=== PATIENT | male | born 1950 | race Two or more races ===

== ENCOUNTER 2019-10-16 08:14 | Emergency (ER) | payer OTHER ==
[~2019-10-16] VITALS: Ht 182.9 cm; Wt 104.3 kg
[2019-10-16] MEDS ORDERED: ZOLOFT20 MG/1 ML (08:26)
[2019-10-16] MEDS ORDERED: TENORMIN50 M1 (08:26)
[2019-10-16] MEDS ORDERED: CRESTOR5 MG (08:26)
[2019-10-16] MEDS ORDERED: ASPIR 8181 MG (08:27)
[2019-10-16] MEDS ORDERED: TAMS0.4C (08:27)
== END 2019-10-16 10:30 | disposition home or self-care (01) ==
LOC: ER 08:14
DX: L02.213 Cutaneous abscess of chest wall (principal); L72.8 Other follicular cysts of the skin and subcutaneous tissue; B96.4 Proteus (mirabilis) (morganii) as the cause of diseases classified elsewhere; B96.6 Bacteroides fragilis [B. fragilis] as the cause of diseases classified elsewhere

== ENCOUNTER 2021-09-26 04:46 | Inpatient (IN) | payer OTHER ==
[~2021-09-26] VITALS: Ht 182.9 cm; Wt 113.4 kg
[~2021-09-26 04:46] MED LIST: ASPIR 8181 MG; CRESTOR5 MG; TAMS0.4C; TENORMIN50 M1; ZOLOFT20 MG/1 ML
[2021-09-26] MEDS ORDERED: ELIQUIS5 MG (05:08)
== END 2021-10-03 15:10 | disposition home or self-care (01) | DRG 308 ==
LOC: ER 04:46 → MEDI 12:26
PROVIDERS: ADMIT Internal Medicine; ATTEND Internal Medicine
PROC: B24BZZZ Ultrasonography of Heart with Aorta (ICD-10-PCS; principal; 2021-09-26)
PROC: BW24ZZZ Computerized Tomography (CT Scan) of Chest and Abdomen (ICD-10-PCS; 2021-09-29)
PROC: B54MZZZ Ultrasonography of Right Upper Extremity Veins (ICD-10-PCS; 2021-09-30)
DX: I48.19 Other persistent atrial fibrillation (principal); J18.8 Other pneumonia, unspecified organism; Z20.822 Contact with and (suspected) exposure to COVID-19; I10 Essential (primary) hypertension; Z72.0 Tobacco use